=== PATIENT | male | born 1965 | race African-American/Black ===

== ENCOUNTER 2019-05-18 10:26 | Inpatient (IN) | payer OTHER ==
[2019-05-18 13:04] VITALS: BMI 31.5
--- NOTE | 2019-05-18 13:33 | HP ---
CIWA Score Nausea/Vomitin Muscle Tremors: 3 Anxiety: 2 Agitation: 3 Paroxysmal Sweats: No Perspiration Orientation: 0-Oriented Tacttile Disturbances: 0-None Auditory Disturbances: 0-None Visual Disturbances: 0-None Headache: 2-Mild CIWA-Ar Total Score: 13 - Admission Criteria OASAS Guidelines: Admission for Medically Managed Detox: Requires at least one of the followin. CIWA greater than 12 2. Seizures within the past 24 hours 3. Delirium tremens within the past 24 hours 4. Hallucinations within the past 24 hours 5. Acute intervention needed for co occurring medical disorder 6. Acute intervention needed for co occurring psychiatric disorder 7. Severe withdrawal that cannot be handled at a lower level of care (continued vomiting, continued diarrhea, abnormal vital signs) requiring intravenous medication and/or fluids 8. Admission ROS [facility] Chief Complaint: alcohol/cocaine detox Allergies/Adverse Reactions: Allergies Allergy/AdvReac Type Severity Reaction Status Date / Time No Known Allergies Allergy Verified 05/18/19 12:53 History of Present Illness: Patient is a 54 yo M with hx of HTN, DM, bells palsy (1990), presenting for alcohol and cocaine detox. Has been drinking alcohol since he was 41 yo. Last drink this morning. 5th of Vodka. Says he drinks a 1/5th of vodka every day. No hx of seizures. Has history of black outs, last night being the last one. Says he wants to change his life and get cleaned up. Has been doing cocaine since 21 years old via inhalation. Denies IV drug use. Last use this morning. 10grams. Uses 10grams a day. Says he has depression. Denies suicidal ideations right now. But says there are times he wants to jump off the room. Last detox in 2014. Retired social worker school. Smokes 5 cigarettes a day. Exam Limitations: No Limitations - Ebola screening Have you traveled outside of the country in the last 21 days: No (N) Have you had contact with anyone from an Ebola affected area: No Do you have a fever: No - Review of Systems Constitutional: Loss of Appetite, Unintentional Wgt. Loss Respiratory: denies: Shortness of Breath Cardiac: denies: Chest Pain, Palpitations Patient History - Patient Medical History Hx Anemia: No Hx Asthma: No Hx Chronic Obstructive Pulmonary Disease (COPD): No Hx Cardiac Disorders: No Hx Hypertension: Yes (Pt is on meds.) Hx Hypercholesterolemia: No Hx Pacemaker: No HX Cerebrovascular Accident: No Hx Seizures: No Hx Dementia: No Hx Diabetes: Yes (Type II) Hx Gastrointestinal Disorders: No Hx Liver Disease: No Hx Genitourinary Disorders: No Hx Sexually Transmitted Disorders: No Hx Renal Disease (ESRD): No Hx Thyroid Disease: No Hx Human Immunodeficiency Virus (HIV): No (NEGATIVE HX) Hx Hepatitis C: No Hx Depression: Yes Hx Suicide Attempt: No Hx Bipolar Disorder: No Hx Schizophrenia: No - Patient Surgical History Past Surgical History: No - PPD History Date: 11/14/14 - Smoking Cessation Smoking history: Current every day smoker Have you smoked in the past 12 months: Yes Aproximately how many cigarettes per day: 4 Cigars Per Day: 2 Hx Chewing Tobacco Use: No Initiated information on smoking cessation: Yes 'Breaking Loose' booklet given: 05/18/19 - Substances abused Alcohol Substance route: Oral Frequency: Daily Amount used: 5th vodka Age of first use: 19 Date of last use: 05/18/19 Cocaine Substance route: Inhalation Frequency: Daily Amount used: 10 bags Age of first use: 21 Date of last use: 05/18/19 Family Disease History - Family Disease History Family Disease History: Diabetes: Mother, Other: Brother (alcohol) Admission Physical Exam BHS - Vital Signs Vital Signs: Vital Signs - 24 hr 05/18/19 05/18/19 12:55 13:21 Temperature 98.2 F 98.2 F Pulse Rate 90 90 Respiratory 20 20 Rate Blood Pressure 159/88 159/88 - Physical General Appearance: Yes: No Apparent Distress Respiratory: Yes: No Respiratory Distress, No Accessory Muscle Use Cardiology: Yes: Regular Rhythm, Regular Rate Extremities: No: Swelling Neurological: Yes: Facial Droop (R side) - Diagnostic (1) Alcohol dependence Current Visit: No Status: Acute (2) Cocaine dependence Current Visit: No Status: Acute (3) Depression Current Visit: No Status: Chronic (4) Obesity Current Visit: No Status: Chronic (5) Type II diabetes mellitus uncontrolled Current Visit: No Status: Chronic Urine Drug Screen - Test Device Lot number: [id number] Expiration date: 02/05/21 - Control Is test valid?: Yes - Results Drug screen NEGATIVE: No Urine drug screen results: MARVIN-Cocaine Inpatient Rehab Admission - Rehab Decision to Admit Inpatient rehab admission?: No
[2019-05-18] MEDS ORDERED: MENTHOL/PHENOL 1 EACH UD MM PRN (14:05)
[2019-05-18] MEDS ORDERED: METHOCARBAMOL 500 MG TABLET PO PRN (14:05)
[2019-05-18] MEDS ORDERED: BISMUTH SUBSALICYLATE 262 MG/15 ML BTL PO PRN (14:05)
[2019-05-18] MEDS ORDERED: MAGNESIUM HYDROX 2400MG/30ML ORAL SUSPENSION 30 ML CUP PO PRN (14:05)
[2019-05-18] MEDS ORDERED: MAG HYDROX/AL HYDROX/SIMETH 30 ML UNIT-DOSE CUP PO PRN (14:05)
[2019-05-18] MEDS ORDERED: ACETAMINOPHEN 325 MG TABLET (FP) PO PRN ×2 (14:05)
[2019-05-18] MEDS ORDERED: chlordiazePOXIDE HCL 25 MG CAPSULE PO PRN (14:05)
[2019-05-18] MEDS ORDERED: MAGNESIUM CITRATE 300 ML BOTTLE PO PRN (14:05)
[2019-05-18] MEDS ORDERED: IBUPROFEN 400 MG TABLET (FP) PO PRN (14:05)
[2019-05-18] MEDS ORDERED: hydrOXYzine PAMOATE 25 MG CAPSULE (FP) PO PRN (14:05)
--- NOTE | 2019-05-18 14:23 | PN ---
Teaching Attending Note Name of Resident: Breezy Eduardo ATTENDING PHYSICIAN STATEMENT I saw and evaluated the patient. I reviewed the resident's note and discussed the case with the resident. I agree with the resident's findings and plan as documented. SUBJECTIVE: this 54 years old male with alcohol and cocaine dependence,history of hypertension,type 2 dm, munoz palsy right,syncope alcohol related,depression,denied seizure, last detox 2014 OBJECTIVE: Vital Signs Temperature 98.2 F 05/18/19 13:21 Pulse Rate 90 05/18/19 13:21 Respiratory Rate 20 05/18/19 13:21 Blood Pressure 159/88 05/18/19 13:21 O2 Sat by Pulse Oximetry (%) ASSESSMENT AND PLAN: agreed for inpatient detox from alcohol,cocaine,medically inpatient detox, medically managed, librium regimen,diabetic and bp controlled,psychiatric evaluation,possible rehab or outpatient . AA meeting
[2019-05-18] MEDS: NICOTINE 14 MG/24 HOURS TOPICAL PATCH TD SCH (15:43)
[2019-05-18] MEDS: amLODIPine BESYLATE 10 MG TABLET (FP) PO SCH (15:43)
[2019-05-18 16:57] LABS: HEMOGLOBIN 15.1 GM/dL (11.7-16.9); MCH 32.4 pg (25.7-33.7); MCHC 32.9 g/dl (32.0-35.9); MEAN CELL VOLUME 98.6 fl (80-96); MEAN PLT VOLUME 10.2 fl (7.5-11.1); PLATELET COUNT 227 K/MM3 (134-434); RBC 4.66 M/mm3 (4.00-5.60); RDW 14.3 % (11.9-15.9); WHITE BLOOD COUNT 8.6 K/mm3 (4.0-10.0)
[2019-05-18 17:06] LABS: ALBUMIN 3.7 g/dl (3.4-5.0); BILIRUBIN,TOTAL 0.6 mg/dL (0.2-1); BLOOD UREA NITROGEN 21.1 mg/dL (7-18); CALCIUM 9.2 mg/dL (8.5-10.1); CREATININE 1.3 mg/dL (0.55-1.3); POTASSIUM 4.6 mmol/L (3.5-5.1); TOT PROT 7.2 g/dl (6.4-8.2)
[2019-05-18] MEDS: metFORMIN HCL 500 MG TABLET (FP) PO SCH (17:53)
[2019-05-18] MEDS: INSULIN SLIDING SCALE (NOVOLOG) 1 VIAL SQ SCH ×2 (17:53→22:23)
[2019-05-18] MEDS: chlordiazePOXIDE HCL 25 MG CAPSULE PO SCH ×2 (17:53→22:23)
[2019-05-18] MEDS: THIAMINE HCL 100 MG TABLET (FP) PO SCH (22:23)
[2019-05-19] MEDS: chlordiazePOXIDE HCL 25 MG CAPSULE PO SCH ×4 (05:44→22:23)
[2019-05-19] MEDS: metFORMIN HCL 500 MG TABLET (FP) PO SCH ×2 (06:55→16:54)
[2019-05-19] MEDS ORDERED: INSULIN SLIDING SCALE (NOVOLOG) 1 VIAL SQ ONE ×2 (06:57→07:50)
[2019-05-19] MEDS: INSULIN SLIDING SCALE (NOVOLOG) 1 VIAL SQ SCH ×4 (06:57→21:36)
[2019-05-19] MEDS: PRENATAL VITAMINS W/ FOLIC ACID TABLET (FP) PO SCH (10:17)
[2019-05-19] MEDS: amLODIPine BESYLATE 10 MG TABLET (FP) PO SCH (10:17)
[2019-05-19] MEDS: NICOTINE 14 MG/24 HOURS TOPICAL PATCH TD SCH (10:18)
--- NOTE | 2019-05-19 11:30 | PN ---
[facility] CIWA - CIWA Score Nausea/Vomitin-Mild Nausea/No Vomiting Muscle Tremors: 2 Anxiety: 3 Agitation: 3 Paroxysmal Sweats: No Perspiration Orientation: 0-Oriented Tacttile Disturbances: 1-Very Mild Itch/Numbness Auditory Disturbances: 0-None Visual Disturbances: 0-None Headache: 1-Very Mild CIWA-Ar Total Score: 11 S Progress Note (SOAP) Subjective: alert,irritable,anxious,interrupted sleep,tremor Objective: 05/19/19 11:27 Vital Signs Temperature 96.6 F L 05/19/19 09:34 Pulse Rate 94 H 05/19/19 09:34 Respiratory Rate 18 05/19/19 09:34 Blood Pressure 138/95 05/19/19 09:34 O2 Sat by Pulse Oximetry (%) Laboratory Last Values WBC 8.6 K/mm3 (4.0-10.0) 05/18/19 14:30 RBC 4.66 M/mm3 (4.00-5.60) 05/18/19 14:30 Hgb 15.1 GM/dL (11.7-16.9) 05/18/19 14:30 Hct 46.0 % (35.4-49) 05/18/19 14:30 MCV 98.6 fl (80-96) H 05/18/19 14:30 MCH 32.4 pg (25.7-33.7) 05/18/19 14:30 MCHC 32.9 g/dl (32.0-35.9) 05/18/19 14:30 RDW 14.3 % (11.9-15.9) 05/18/19 14:30 Plt Count 227 K/MM3 (134-434) 05/18/19 14:30 MPV 10.2 fl (7.5-11.1) 05/18/19 14:30 Sodium 137 mmol/L (136-145) 05/18/19 14:30 Potassium 4.6 mmol/L (3.5-5.1) 05/18/19 14:30 Chloride 101 mmol/L (98-107) 05/18/19 14:30 Carbon Dioxide 27 mmol/L (21-32) 05/18/19 14:30 Anion Gap 9 MMOL/L (8-16) 05/18/19 14:30 BUN 21.1 mg/dL (7-18) H 05/18/19 14:30 Creatinine 1.3 mg/dL (0.55-1.3) 05/18/19 14:30 Est GFR (CKD-EPI)AfAm 72.20 05/18/19 14:30 Est GFR (CKD-EPI)NonAf 62.29 05/18/19 14:30 POC Glucometer 264 UNITS (80-120) 05/19/19 05:44 Random Glucose 336 mg/dL (74-106) H 05/18/19 14:30 Calcium 9.2 mg/dL (8.5-10.1) 05/18/19 14:30 Total Bilirubin 0.6 mg/dL (0.2-1) 05/18/19 14:30 AST 62 U/L (15-37) H 05/18/19 14:30 ALT 43 U/L (13-61) 05/18/19 14:30 Alkaline Phosphatase 74 U/L (45-117) 05/18/19 14:30 Total Protein 7.2 g/dl (6.4-8.2) 05/18/19 14:30 Albumin 3.7 g/dl (3.4-5.0) 05/18/19 14:30 RPR Titer Nonreactive (NONREACTIVE) 05/18/19 14:30 Assessment: 05/19/19 11:28 withdrawal symptom Plan: continue detox librium regimen,bgm monitoring wit insulin coverage sliding scale
--- NOTE | 2019-05-19 13:07 | CONSULT ---
[facility] Psychiatric Consult - Data Date of interview: 05/19/19 Admission source: [facility] Identifying data: Readmission to [facility] for this 54 y/o AA male self- referred for detoxification (alcohol, cocaine). Examined at [address] [place] [address]. 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 Substance Abuse History: Confirmed by patient in this interview. Details in current [facility] report as follows : Smoking history: Current every day smoker. Have you smoked in the past 12 months: Yes. Aproximately how many cigarettes per day: 4. Cigars Per Day: 2. Hx Chewing Tobacco Use: No. Initiated information on smoking cessation: Yes. 'Breaking Loose' booklet given: . - Substances abused. Alcohol. Substance route: Oral. Frequency: Daily. Amount used: 5th vodka. Age of first use: 19. Date of last use: . Cocaine. Substance route: Inhalation. Frequency: Daily. Amount used: 10 bags. Age of first use: 21. Date of last use: 05/18/19 Medical History: Remarkable for hypertension, obesity and diabetes mellitus. Psychiatric History: Patient denies history of psychiatric hospitalizations, OPD care or suicide attempts. Mr Baugh reports that he has experienced suicidal thoughts in the past and " felt like hearing voices " during times of ETOH + crack/cocaine intoxication. Patient denies history of suicide attempts. Physical/Sexual Abuse/Trauma History: Patient denies history of abuse. Additional Comment: Urine drug screen results: MARVIN-Cocaine. Noted. Mental Status Exam - Mental Status Exam Alert and Oriented to: Time, Place, Person Cognitive Function: Good Patient Appearance: Unkempt (obese), Disheveled Mood: Withdrawn, Hopeful Affect: Appropriate, Normal Range Patient Behavior: Fatigued, Cooperative Speech Pattern: Clear, Appropriate Voice Loudness: Normal Thought Process: Goal Oriented Thought Disorder: Not Present Hallucinations: Denies Suicidal Ideation: Denies Homicidal Ideation: Denies Insight/Judgement: Poor Sleep: Fair Appetite: Good Muscle strength/Tone: Normal Gait/Station: Normal Psychiatric Findings - Problem List ([place] 1, 2,3) (1) Alcohol dependence Current Visit: Yes Status: Chronic (2) Cocaine dependence Current Visit: Yes Status: Chronic (3) Nicotine dependence Current Visit: Yes Status: Chronic (4) Substance induced mood disorder Current Visit: Yes Status: Chronic (5) Insomnia Current Visit: Yes Status: Chronic - Initial Treatment Plan Initial Treatment Plan: Psychoeducation. Sleep hygiene. Support. Detoxification. AA meetings. Relapse prevention (MAT) discussed with the patient. Observation.
[2019-05-19] MEDS: THIAMINE HCL 100 MG TABLET (FP) PO SCH (21:36)
[2019-05-20] MEDS: chlordiazePOXIDE HCL 25 MG CAPSULE PO SCH ×4 (06:07→22:11)
[2019-05-20] MEDS: metFORMIN HCL 500 MG TABLET (FP) PO SCH ×2 (06:07→17:17)
[2019-05-20] MEDS: INSULIN SLIDING SCALE (NOVOLOG) 1 VIAL SQ SCH ×4 (08:07→22:11)
[2019-05-20] MEDS: amLODIPine BESYLATE 10 MG TABLET (FP) PO SCH (10:46)
[2019-05-20] MEDS: PRENATAL VITAMINS W/ FOLIC ACID TABLET (FP) PO SCH (10:46)
[2019-05-20] MEDS: NICOTINE 14 MG/24 HOURS TOPICAL PATCH TD SCH (10:46)
--- NOTE | 2019-05-20 11:33 | EKG ---
Test Reason : Blood Pressure : / mmHG Vent. Rate : 086 BPM Atrial Rate : 086 BPM P-R Int : 160 ms QRS Dur : 106 ms QT Int : 380 ms P-R-T Axes : 064 -69 095 degrees QTc Int : 454 ms SINUS RHYTHM WITH OCCASIONAL PREMATURE VENTRICULAR COMPLEXES POSSIBLE LEFT ATRIAL ENLARGEMENT LEFT ANTERIOR FASCICULAR BLOCK POSSIBLE ANTERIOR INFARCT , AGE UNDETERMINED ABNORMAL ECG NO PREVIOUS ECGS AVAILABLE Confirmed by ERICA GHOTRA, CATHY ([id number]) on 05/20/2019 11:33:05 AM Referred By: Confirmed By:CATHY MALDONADO MD
--- NOTE | 2019-05-20 15:40 | PN ---
S CIWA - CIWA Score Nausea/Vomitin-No Nausea/No Vomiting Muscle Tremors: 2 Anxiety: 2 Agitation: 2 Paroxysmal Sweats: No Perspiration Orientation: 0-Oriented Tacttile Disturbances: 0-None Auditory Disturbances: 0-None Visual Disturbances: 0-None Headache: 0-None Present CIWA-Ar Total Score: 6 BHS Progress Note (SOAP) Subjective: doing well with librium detox regimen less tremor mild anxiety Objective: 05/20/19 16:12 alcohol withdrawal sx Laboratory Last Values WBC 8.6 K/mm3 (4.0-10.0) 05/18/19 14:30 RBC 4.66 M/mm3 (4.00-5.60) 05/18/19 14:30 Hgb 15.1 GM/dL (11.7-16.9) 05/18/19 14:30 Hct 46.0 % (35.4-49) 05/18/19 14:30 MCV 98.6 fl (80-96) H 05/18/19 14:30 MCH 32.4 pg (25.7-33.7) 05/18/19 14:30 MCHC 32.9 g/dl (32.0-35.9) 05/18/19 14:30 RDW 14.3 % (11.9-15.9) 05/18/19 14:30 Plt Count 227 K/MM3 (134-434) 05/18/19 14:30 MPV 10.2 fl (7.5-11.1) 05/18/19 14:30 Sodium 137 mmol/L (136-145) 05/18/19 14:30 Potassium 4.6 mmol/L (3.5-5.1) 05/18/19 14:30 Chloride 101 mmol/L (98-107) 05/18/19 14:30 Carbon Dioxide 27 mmol/L (21-32) 05/18/19 14:30 Anion Gap 9 MMOL/L (8-16) 05/18/19 14:30 BUN 21.1 mg/dL (7-18) H 05/18/19 14:30 Creatinine 1.3 mg/dL (0.55-1.3) 05/18/19 14:30 Est GFR (CKD-EPI)AfAm 72.20 05/18/19 14:30 Est GFR (CKD-EPI)NonAf 62.29 05/18/19 14:30 POC Glucometer 269 UNITS (80-120) 05/20/19 10:50 Random Glucose 336 mg/dL (74-106) H 05/18/19 14:30 Calcium 9.2 mg/dL (8.5-10.1) 05/18/19 14:30 Total Bilirubin 0.6 mg/dL (0.2-1) 05/18/19 14:30 AST 62 U/L (15-37) H 05/18/19 14:30 ALT 43 U/L (13-61) 05/18/19 14:30 Alkaline Phosphatase 74 U/L (45-117) 05/18/19 14:30 Total Protein 7.2 g/dl (6.4-8.2) 05/18/19 14:30 Albumin 3.7 g/dl (3.4-5.0) 05/18/19 14:30 RPR Titer Nonreactive (NONREACTIVE) 05/18/19 14:30 lab noted Vital Signs Temperature 97.6 F 05/20/19 13:39 Pulse Rate 102 H 05/20/19 13:39 Respiratory Rate 20 05/20/19 13:39 Blood Pressure 124/70 05/20/19 13:39 O2 Sat by Pulse Oximetry (%) Assessment: 05/20/19 15:40 alcohol withdrawal sx Plan: continue ativan detox regimen
[2019-05-20] MEDS: THIAMINE HCL 100 MG TABLET (FP) PO SCH (22:11)
[2019-05-21] MEDS ORDERED: chlordiazePOXIDE HCL 10 MG CAPSULE PO PRN
[2019-05-21] MEDS: chlordiazePOXIDE HCL 10 MG CAPSULE PO SCH ×4 (05:40→22:12)
[2019-05-21] MEDS: metFORMIN HCL 500 MG TABLET (FP) PO SCH ×2 (07:04→16:58)
[2019-05-21] MEDS: INSULIN SLIDING SCALE (NOVOLOG) 1 VIAL SQ SCH ×4 (07:13→21:56)
[2019-05-21] MEDS: NICOTINE 14 MG/24 HOURS TOPICAL PATCH TD SCH (11:21)
[2019-05-21] MEDS: PRENATAL VITAMINS W/ FOLIC ACID TABLET (FP) PO SCH (11:21)
[2019-05-21] MEDS: amLODIPine BESYLATE 10 MG TABLET (FP) PO SCH (11:21)
--- NOTE | 2019-05-21 13:15 | PN ---
S CIWA - CIWA Score Nausea/Vomitin-Mild Nausea/No Vomiting Muscle Tremors: 2 Anxiety: 2 Agitation: 2 Paroxysmal Sweats: No Perspiration Orientation: 0-Oriented Tacttile Disturbances: 0-None Auditory Disturbances: 0-None Visual Disturbances: 0-None Headache: 1-Very Mild CIWA-Ar Total Score: 8 BHS Progress Note (SOAP) Subjective: alert,irritable,anxious,interrupted sleep,pain in the body Objective: 05/21/19 13:13 Vital Signs Temperature 96.8 F L 05/21/19 09:19 Pulse Rate 50 L 05/21/19 09:19 Respiratory Rate 18 05/21/19 09:19 Blood Pressure 146/94 05/21/19 09:19 O2 Sat by Pulse Oximetry (%) 05/21/19 13:14 bgm 246 Assessment: 05/21/19 13:13 withdrawal symptom Plan: continue detox librium regimen,bgm monitoring
[2019-05-21] MEDS: THIAMINE HCL 100 MG TABLET (FP) PO SCH (21:53)
[2019-05-21] MEDS: MELATONIN 5 MG TABLETS PO PRN (21:53)
[2019-05-22] MEDS: metFORMIN HCL 500 MG TABLET (FP) PO SCH ×2 (06:00→17:13)
[2019-05-22] MEDS: chlordiazePOXIDE HCL 10 MG CAPSULE PO SCH ×2 (06:00→17:13)
[2019-05-22] MEDS ORDERED: INSULIN SLIDING SCALE (NOVOLOG) 1 VIAL SQ ONE (07:53)
[2019-05-22] MEDS: INSULIN SLIDING SCALE (NOVOLOG) 1 VIAL SQ SCH ×4 (07:54→22:17)
[2019-05-22] MEDS: amLODIPine BESYLATE 10 MG TABLET (FP) PO SCH (10:59)
[2019-05-22] MEDS: NICOTINE 14 MG/24 HOURS TOPICAL PATCH TD SCH (10:59)
[2019-05-22] MEDS: PRENATAL VITAMINS W/ FOLIC ACID TABLET (FP) PO SCH (10:59)
--- NOTE | 2019-05-22 14:50 | PN ---
S CIWA - CIWA Score Nausea/Vomitin-No Nausea/No Vomiting Muscle Tremors: None Anxiety: 0-No Anxiety, at Ease Agitation: 0-Normal Activity Paroxysmal Sweats: No Perspiration Orientation: 0-Oriented Tacttile Disturbances: 0-None Auditory Disturbances: 0-None Visual Disturbances: 0-None Headache: 0-None Present CIWA-Ar Total Score: 0 BHS Progress Note (SOAP) Subjective: Patient denies current Withdrawal / Detox symptoms and reports that he feels well overall at this time. Objective: PATIENT A & O X 3. IN NO ACUTE DISTRESS. 05/22/19 14:47 Vital Signs Temperature 97.6 F 05/22/19 13:12 Pulse Rate 47 L 05/22/19 14:23 Respiratory Rate 18 05/22/19 13:12 Blood Pressure 151/96 05/22/19 14:23 O2 Sat by Pulse Oximetry (%) Laboratory Tests 05/18/19 05/18/19 05/18/19 14:30 14:30 14:30 WBC 8.6 RBC 4.66 Hgb 15.1 Hct 46.0 MCV 98.6 H MCH 32.4 MCHC 32.9 RDW 14.3 Plt Count 227 MPV 10.2 Sodium 137 Potassium 4.6 Chloride 101 Carbon Dioxide 27 Anion Gap 9 BUN 21.1 H Creatinine 1.3 Est GFR (CKD-EPI)AfAm 72.20 Est GFR (CKD-EPI)NonAf 62.29 POC Glucometer Random Glucose 336 H Calcium 9.2 Total Bilirubin 0.6 AST 62 H ALT 43 Alkaline Phosphatase 74 Total Protein 7.2 Albumin 3.7 RPR Titer Nonreactive 05/18/19 05/18/19 05/18/19 14:42 16:45 21:45 WBC RBC Hgb Hct MCV MCH MCHC RDW Plt Count MPV Sodium Potassium Chloride Carbon Dioxide Anion Gap BUN Creatinine Est GFR (CKD-EPI)AfAm Est GFR (CKD-EPI)NonAf POC Glucometer [phone] Random Glucose Calcium Total Bilirubin AST ALT Alkaline Phosphatase Total Protein Albumin RPR Titer 05/19/19 05/19/19 05/19/19 05:44 11:54 16:25 WBC RBC Hgb Hct MCV MCH MCHC RDW Plt Count MPV Sodium Potassium Chloride Carbon Dioxide Anion Gap BUN Creatinine Est GFR (CKD-EPI)AfAm Est GFR (CKD-EPI)NonAf POC Glucometer [phone] Random Glucose Calcium Total Bilirubin AST ALT Alkaline Phosphatase Total Protein Albumin RPR Titer 05/19/19 05/20/19 05/20/19 21:24 06:05 10:50 WBC RBC Hgb Hct MCV MCH MCHC RDW Plt Count MPV Sodium Potassium Chloride Carbon Dioxide Anion Gap BUN Creatinine Est GFR (CKD-EPI)AfAm Est GFR (CKD-EPI)NonAf POC Glucometer [phone] Random Glucose Calcium Total Bilirubin AST ALT Alkaline Phosphatase Total Protein Albumin RPR Titer 05/20/19 05/20/19 05/21/19 16:26 21:09 05:37 WBC RBC Hgb Hct MCV MCH MCHC RDW Plt Count MPV Sodium Potassium Chloride Carbon Dioxide Anion Gap BUN Creatinine Est GFR (CKD-EPI)AfAm Est GFR (CKD-EPI)NonAf POC Glucometer [phone] Random Glucose Calcium Total Bilirubin AST ALT Alkaline Phosphatase Total Protein Albumin RPR Titer 05/21/19 05/21/19 05/21/19 12:06 16:28 20:49 WBC RBC Hgb Hct MCV MCH MCHC RDW Plt Count MPV Sodium Potassium Chloride Carbon Dioxide Anion Gap BUN Creatinine Est GFR (CKD-EPI)AfAm Est GFR (CKD-EPI)NonAf POC Glucometer [phone] Random Glucose Calcium Total Bilirubin AST ALT Alkaline Phosphatase Total Protein Albumin RPR Titer 05/22/19 05/22/19 05:59 11:04 WBC RBC Hgb Hct MCV MCH MCHC RDW Plt Count MPV Sodium Potassium Chloride Carbon Dioxide Anion Gap BUN Creatinine Est GFR (CKD-EPI)AfAm Est GFR (CKD-EPI)NonAf POC Glucometer [phone] Random Glucose Calcium Total Bilirubin AST ALT Alkaline Phosphatase Total Protein Albumin RPR Titer LABS NOTED. PATIENT HAS HAD ELEVATED AST LEVELS ON PREVIOUS ADMISSIONS. 05/22/19 14:47 Assessment: 05/22/19 14:48 WITHDRAWAL SYMPTOMS. HYPERTENSION. ELEVATED AST LEVEL. Plan: CONTINUE DETOX. LISINOPRIL, 10 MG PO DAILY ORDERED FOR ELEVATED BP DESPITE PREVIOUS TREATMENT. [facility] FOR LISINOPRIL, 40 MG PO DAILY ON OUTPATIENT BASIS. WILL START AT 10 MG PO DAILY AND SUBSEQUENTLY TITRATE ACCORDINGLY.
[2019-05-22] MEDS ORDERED: LISINOPRIL 10 MG TABLET (FP) PO ONE (15:05)
[2019-05-22] MEDS: MELATONIN 5 MG TABLETS PO PRN (22:17)
[2019-05-22] MEDS: THIAMINE HCL 100 MG TABLET (FP) PO SCH (22:17)
[2019-05-23] MEDS ORDERED: chlordiazePOXIDE HCL 10 MG CAPSULE PO ONE (05:00)
[2019-05-23] MEDS: metFORMIN HCL 500 MG TABLET (FP) PO SCH (08:14)
[2019-05-23] MEDS: INSULIN SLIDING SCALE (NOVOLOG) 1 VIAL SQ SCH ×2 (08:14→11:48)
[2019-05-23] MEDS ORDERED: LISINOPRIL 10 MG TABLET (FP) PO SCH (10:00)
[2019-05-23] MEDS: PRENATAL VITAMINS W/ FOLIC ACID TABLET (FP) PO SCH (10:08)
[2019-05-23] MEDS: amLODIPine BESYLATE 10 MG TABLET (FP) PO SCH (10:08)
[2019-05-23] MEDS ORDERED: VITAMINS A AND D TOPICAL OINTMENT 60 GM TUBE TP ONE (10:12)
[2019-05-23] MEDS: NICOTINE 14 MG/24 HOURS TOPICAL PATCH TD SCH (11:03)
--- NOTE | 2019-05-23 13:26 | DS ---
[facility] Detox Discharge Summary Admission Date: 05/18/19 Discharge Date: 05/23/19 - History Present History: Alcohol Dependence, Cocaine Dependence Additional Comments: PATIENT GOING TO [facility] ([facility]) FOR AFTERCARE. PATIENT WAS DISCHARGED FROM DETOX UNIT TO BE TAKEN OVER TO REHAB UNIT IN STABLE MEDICAL CONDITION. Pertinent Past History: Nicotine Dependence, Depression, Insomnia, Type DM, History Of George's Palsy. - Physical Exam Results Vital Signs: Vital Signs Temperature 98.1 F 05/23/19 09:32 Pulse Rate 88 05/23/19 09:32 Respiratory Rate 18 05/23/19 09:32 Blood Pressure 144/97 05/23/19 09:32 O2 Sat by Pulse Oximetry (%) Pertinent Admission Physical Exam Findings: WITHDRAWAL SYMPTOMS. Laboratory Tests 05/18/19 05/18/19 05/18/19 14:30 14:30 14:30 WBC 8.6 RBC 4.66 Hgb 15.1 Hct 46.0 MCV 98.6 H MCH 32.4 MCHC 32.9 RDW 14.3 Plt Count 227 MPV 10.2 Sodium 137 Potassium 4.6 Chloride 101 Carbon Dioxide 27 Anion Gap 9 BUN 21.1 H Creatinine 1.3 Est GFR (CKD-EPI)AfAm 72.20 Est GFR (CKD-EPI)NonAf 62.29 POC Glucometer Random Glucose 336 H Calcium 9.2 Total Bilirubin 0.6 AST 62 H ALT 43 Alkaline Phosphatase 74 Total Protein 7.2 Albumin 3.7 RPR Titer Nonreactive 05/18/19 05/18/19 05/18/19 14:42 16:45 21:45 WBC RBC Hgb Hct MCV MCH MCHC RDW Plt Count MPV Sodium Potassium Chloride Carbon Dioxide Anion Gap BUN Creatinine Est GFR (CKD-EPI)AfAm Est GFR (CKD-EPI)NonAf POC Glucometer [phone] Random Glucose Calcium Total Bilirubin AST ALT Alkaline Phosphatase Total Protein Albumin RPR Titer 05/19/19 05/19/19 05/19/19 05:44 11:54 16:25 WBC RBC Hgb Hct MCV MCH MCHC RDW Plt Count MPV Sodium Potassium Chloride Carbon Dioxide Anion Gap BUN Creatinine Est GFR (CKD-EPI)AfAm Est GFR (CKD-EPI)NonAf POC Glucometer [phone] Random Glucose Calcium Total Bilirubin AST ALT Alkaline Phosphatase Total Protein Albumin RPR Titer 05/19/19 05/20/19 05/20/19 21:24 06:05 10:50 WBC RBC Hgb Hct MCV MCH MCHC RDW Plt Count MPV Sodium Potassium Chloride Carbon Dioxide Anion Gap BUN Creatinine Est GFR (CKD-EPI)AfAm Est GFR (CKD-EPI)NonAf POC Glucometer [phone] Random Glucose Calcium Total Bilirubin AST ALT Alkaline Phosphatase Total Protein Albumin RPR Titer 05/20/19 05/20/19 05/21/19 16:26 21:09 05:37 WBC RBC Hgb Hct MCV MCH MCHC RDW Plt Count MPV Sodium Potassium Chloride Carbon Dioxide Anion Gap BUN Creatinine Est GFR (CKD-EPI)AfAm Est GFR (CKD-EPI)NonAf POC Glucometer [phone] Random Glucose Calcium Total Bilirubin AST ALT Alkaline Phosphatase Total Protein Albumin RPR Titer 05/21/19 05/21/19 05/21/19 12:06 16:28 20:49 WBC RBC Hgb Hct MCV MCH MCHC RDW Plt Count MPV Sodium Potassium Chloride Carbon Dioxide Anion Gap BUN Creatinine Est GFR (CKD-EPI)AfAm Est GFR (CKD-EPI)NonAf POC Glucometer [phone] Random Glucose Calcium Total Bilirubin AST ALT Alkaline Phosphatase Total Protein Albumin RPR Titer 05/22/19 05/22/19 05/22/19 05:59 11:04 16:37 WBC RBC Hgb Hct MCV MCH MCHC RDW Plt Count MPV Sodium Potassium Chloride Carbon Dioxide Anion Gap BUN Creatinine Est GFR (CKD-EPI)AfAm Est GFR (CKD-EPI)NonAf POC Glucometer [phone] Random Glucose Calcium Total Bilirubin AST ALT Alkaline Phosphatase Total Protein Albumin RPR Titer 05/22/19 05/23/19 05/23/19 22:01 05:28 11:41 WBC RBC Hgb Hct MCV MCH MCHC RDW Plt Count MPV Sodium Potassium Chloride Carbon Dioxide Anion Gap BUN Creatinine Est GFR (CKD-EPI)AfAm Est GFR (CKD-EPI)NonAf POC Glucometer [phone] Random Glucose Calcium Total Bilirubin AST ALT Alkaline Phosphatase Total Protein Albumin RPR Titer 05/23/19 11:44 WBC RBC Hgb Hct MCV MCH MCHC RDW Plt Count MPV Sodium Potassium Chloride Carbon Dioxide Anion Gap BUN Creatinine Est GFR (CKD-EPI)AfAm Est GFR (CKD-EPI)NonAf POC Glucometer 357 Random Glucose Calcium Total Bilirubin AST ALT Alkaline Phosphatase Total Protein Albumin RPR Titer LABS NOTED. - Treatment Hospital Course: Detox Protocol Followed, Detoxed Safely, Responded well, Discharged Condition Good, Rehab Referral Accepted Patient has Accepted a Rehab Referral to: [facility] ([place], [place]). - Medication Discharge Medications: Ambulatory Orders Amlodipine Besylate [Norvasc -] 10 mg PO DAILY 09/19/13 metFORMIN HCL [Glucophage -] 500 mg PO BID 09/19/13 Lisinopril [Zestril] 40 mg PO DAILY 05/22/19 Nifedipine ER [Procardia XL -] 90 mg PO DAILY 05/22/19 - Diagnosis (1) Elevated aspartate aminotransferase level Current Visit: Yes Status: Acute (2) Hypertension Current Visit: Yes Status: Chronic Qualifiers: Hypertension type: unspecified Qualified Code(s): I10 - Essential (primary ) hypertension (3) Alcohol dependence Current Visit: Yes Status: Acute (4) Cocaine dependence Current Visit: Yes Status: Chronic Qualifiers: Substance use status: in withdrawal Qualified Code(s): F14.23 - Cocaine dependence with withdrawal (5) Insomnia Current Visit: Yes Status: Chronic Qualifiers: Insomnia type: unspecified Qualified Code(s): G47.00 - Insomnia, unspecified (6) Nicotine dependence Current Visit: Yes Status: Chronic Qualifiers: Nicotine product type: cigarettes Substance use status: uncomplicated Qualified Code(s): F17.210 - Nicotine dependence, cigarettes, uncomplicated (7) Substance induced mood disorder Current Visit: Yes Status: Chronic (8) Depression Current Visit: No Status: Chronic Qualifiers: Depression Type: unspecified Qualified Code(s): F32.9 - Major depressive disorder, single episode, unspecified (9) Type II diabetes mellitus uncontrolled Current Visit: Yes Status: Chronic - AMA Did Patient Leave Against Medical Advice: No [facility] CIWA - CIWA Score Nausea/Vomitin-No Nausea/No Vomiting Muscle Tremors: None Anxiety: 0-No Anxiety, at Ease Agitation: 1-Slight > Activity Paroxysmal Sweats: No Perspiration Orientation: 0-Oriented Tacttile Disturbances: 0-None Auditory Disturbances: 0-None Visual Disturbances: 0-None Headache: 0-None Present CIWA-Ar Total Score: 1
[2019-05-23 13:28] VITALS: BP 158/97; PULSE 86; TEMP 98
== END 2019-05-23 17:00 | disposition home or self-care (01) | DRG 897 ==
LOC: YASAS 10:26 → Y3N 15:03
PROVIDERS: ADMIT Surgery; ATTEND Surgery
PROC: HZ2ZZZZ Detoxification Services for Substance Abuse Treatment (ICD-10-PCS; principal; 2019-05-18)
DX: F10.230 Alcohol dependence with withdrawal, uncomplicated (principal); F14.20 Cocaine dependence, uncomplicated; F17.210 Nicotine dependence, cigarettes, uncomplicated; F19.24 Other psychoactive substance dependence with psychoactive substance-induced mood disorder; F32.9 Major depressive disorder, single episode, unspecified; G47.00 Insomnia, unspecified; G51.0 Bell's palsy; I10 Essential (primary) hypertension; E11.65 Type 2 diabetes mellitus with hyperglycemia; Z79.84 Long term (current) use of oral hypoglycemic drugs; R94.5 Abnormal results of liver function studies
CPT/HCPCS: 36415; 71046-TC-FY; 80053; 82962; 85027; 86593; 93005; 93010

== ENCOUNTER 2019-05-23 17:10 | Inpatient (IN) | payer OTHER ==
--- NOTE | 2019-05-23 13:44 | HP ---
[facility] Rehab Assess/Revision - Admission History Admitted to Rehab from: [facility] Date of Admission to Rehab: 05/23/2019. - Vital signs Vital Signs: NOTED; STABLE. - Findings Detox History & Physical reviewed: Yes Concur with findings: Yes Comments/Additional Findings: PATIENT'S MEDICAL / MEDICATION HISTORY REVIEWED PRIOR TO DISCHARGE FROM DETOX UNIT. LISINOPRIL STARTED (AT 10 MG PO DAILY) FOR TREATMENT OF HTN WHILE PATIENT WAS ADMITTED FOR DETOX. DAILY DOSE OF LISINOPRIL TO BE INCREASED TO 20 MG PO DAILY FOR TIME BEIMNG WHILE PATIENT ADMITTED TO REHAB FOR ELEVATED BP READINGS DESPITE PREVIOUS TREATMENT. WILL CONTINUE TO MONITOR MR. LEVY'S BP AND TITRATE ACCORDINGLY, IF NECESSARY. PATIENT WAS DISCHARGED FROM DETOX UNIT TO BE TAKEN OVER TO REHAB UNIT IN STABLE MEDICAL CONDITION. Inpatient Rehab Admission - Rehab Decision to Admit Inpatient rehab admission?: Yes - Initial Determination Are CD services needed?: Yes Free of communicable disease: Yes Not in need of hospitalization: Yes - Rehab Admission Criteria Previous failed treatment: Yes Poor recovery environment: Yes Comorbidities: Yes Lacks judgement: No Patient is meeting Inpatient Rehab admission criteria:: Yes
[~2019-05-23 17:10] MED LIST: ACETAMINOPHEN 325 MG TABLET (FP) PO PRN; LOPERAMIDE HCL 2 MG CAPSULE PO PRN; MAG HYDROX/AL HYDROX/SIMETH 30 ML UNIT-DOSE CUP PO PRN; MAGNESIUM CITRATE 300 ML BOTTLE PO PRN; MAGNESIUM HYDROX 2400MG/30ML ORAL SUSPENSION 30 ML CUP PO PRN; MENTHOL/PHENOL 1 EACH UD MM PRN; P-EPHED 60MG/TRIPROLIDI 2.5MG TABLET PO PRN; guaiFENesin 200 MG/10 ML 10 ML UNIT-DOSE CUPS PO PRN
[2019-05-23] MEDS ORDERED: INSULIN (NOVOLOG) ASPART 100 UNITS/ML 10ML VIAL ONE ×2 (17:26→22:24)
[2019-05-23] MEDS: metFORMIN HCL 500 MG TABLET (FP) PO SCH (17:55)
[2019-05-23] MEDS: INSULIN SLIDING SCALE (NOVOLOG) 1 VIAL SQ SCH ×2 (17:55→22:32)
[2019-05-23] MEDS: CLOTRIMAZOLE 1% CREAM 15 GM TUBE TP SCH (21:42)
[2019-05-23] MEDS: THIAMINE HCL 100 MG TABLET (FP) PO SCH (21:42)
[2019-05-24] MEDS: metFORMIN HCL 500 MG TABLET (FP) PO SCH ×2 (06:46→16:51)
[2019-05-24] MEDS ORDERED: INSULIN (NOVOLOG) ASPART 100 UNITS/ML 10ML VIAL ONE ×2 (06:48→12:08)
[2019-05-24] MEDS: INSULIN SLIDING SCALE (NOVOLOG) 1 VIAL SQ SCH ×4 (06:49→21:29)
[2019-05-24] MEDS: PRENATAL VITAMINS W/ FOLIC ACID TABLET (FP) PO SCH (10:06)
[2019-05-24] MEDS: LISINOPRIL 10 MG TABLET (FP) PO SCH (10:06)
[2019-05-24] MEDS: NICOTINE 14 MG/24 HOURS TOPICAL PATCH TD SCH (10:06)
[2019-05-24] MEDS: amLODIPine BESYLATE 10 MG TABLET (FP) PO SCH (10:06)
[2019-05-24] MEDS: CLOTRIMAZOLE 1% CREAM 15 GM TUBE TP SCH ×2 (12:06→21:30)
[2019-05-24] MEDS: MELATONIN 5 MG TABLETS PO PRN (21:30)
[2019-05-24] MEDS: THIAMINE HCL 100 MG TABLET (FP) PO SCH (21:30)
[2019-05-25] MEDS: metFORMIN HCL 500 MG TABLET (FP) PO SCH ×2 (06:24→16:53)
[2019-05-25] MEDS ORDERED: INSULIN (NOVOLOG) ASPART 100 UNITS/ML 10ML VIAL ONE ×3 (07:38→16:54)
[2019-05-25] MEDS: INSULIN SLIDING SCALE (NOVOLOG) 1 VIAL SQ SCH ×4 (07:41→21:26)
[2019-05-25] MEDS: LISINOPRIL 10 MG TABLET (FP) PO SCH (10:16)
[2019-05-25] MEDS: amLODIPine BESYLATE 10 MG TABLET (FP) PO SCH (10:16)
[2019-05-25] MEDS: NICOTINE 14 MG/24 HOURS TOPICAL PATCH TD SCH (10:16)
[2019-05-25] MEDS: PRENATAL VITAMINS W/ FOLIC ACID TABLET (FP) PO SCH (10:16)
[2019-05-25] MEDS: CLOTRIMAZOLE 1% CREAM 15 GM TUBE TP SCH ×2 (10:16→21:26)
--- NOTE | 2019-05-25 16:22 | PN ---
[facility] Progress Note Note: 54 y/o male referred from [address] [place] [address] to rehab. Hx depression(Not on meds but was seen in detox):No complaints PMHx:DM and HTN- on meds Vital Signs - 24 hr 05/25/19 05/25/19 05/25/19 00:30 03:30 07:05 Temperature 97.6 F Pulse Rate 45 L Respiratory 18 16 18 Rate Blood Pressure 163/83 05/25/19 10:00 Temperature Pulse Rate 84 Respiratory Rate Blood Pressure 128/78 continue rehab.
[2019-05-25] MEDS: MELATONIN 5 MG TABLETS PO PRN (21:26)
[2019-05-25] MEDS: THIAMINE HCL 100 MG TABLET (FP) PO SCH (21:26)
[2019-05-26] MEDS: metFORMIN HCL 500 MG TABLET (FP) PO SCH ×2 (07:11→16:47)
[2019-05-26] MEDS ORDERED: INSULIN (NOVOLOG) ASPART 100 UNITS/ML 10ML VIAL ONE ×3 (07:20→16:48)
[2019-05-26] MEDS: INSULIN SLIDING SCALE (NOVOLOG) 1 VIAL SQ SCH ×4 (07:21→21:49)
[2019-05-26] MEDS: NICOTINE 14 MG/24 HOURS TOPICAL PATCH TD SCH (10:16)
[2019-05-26] MEDS: PRENATAL VITAMINS W/ FOLIC ACID TABLET (FP) PO SCH (10:16)
[2019-05-26] MEDS: amLODIPine BESYLATE 10 MG TABLET (FP) PO SCH (10:16)
[2019-05-26] MEDS: LISINOPRIL 10 MG TABLET (FP) PO SCH (10:16)
[2019-05-26] MEDS: CLOTRIMAZOLE 1% CREAM 15 GM TUBE TP SCH ×2 (10:17→21:40)
[2019-05-26] MEDS: THIAMINE HCL 100 MG TABLET (FP) PO SCH (21:40)
[2019-05-26] MEDS: MELATONIN 5 MG TABLETS PO PRN (21:40)
[2019-05-27] MEDS: metFORMIN HCL 500 MG TABLET (FP) PO SCH ×2 (07:07→16:57)
[2019-05-27] MEDS ORDERED: INSULIN (NOVOLOG) ASPART 100 UNITS/ML 10ML VIAL ONE ×2 (07:10→12:09)
[2019-05-27] MEDS: INSULIN SLIDING SCALE (NOVOLOG) 1 VIAL SQ SCH ×4 (07:16→21:39)
[2019-05-27] MEDS: NICOTINE 14 MG/24 HOURS TOPICAL PATCH TD SCH (10:36)
[2019-05-27] MEDS: CLOTRIMAZOLE 1% CREAM 15 GM TUBE TP SCH ×2 (10:36→21:38)
[2019-05-27] MEDS: LISINOPRIL 10 MG TABLET (FP) PO SCH (10:36)
[2019-05-27] MEDS: amLODIPine BESYLATE 10 MG TABLET (FP) PO SCH (10:36)
[2019-05-27] MEDS: PRENATAL VITAMINS W/ FOLIC ACID TABLET (FP) PO SCH (10:36)
[2019-05-27] MEDS: THIAMINE HCL 100 MG TABLET (FP) PO SCH (21:39)
[2019-05-27] MEDS: MELATONIN 5 MG TABLETS PO PRN (21:40)
[2019-05-28] MEDS: metFORMIN HCL 500 MG TABLET (FP) PO SCH ×2 (06:50→17:02)
[2019-05-28] MEDS ORDERED: INSULIN (NOVOLOG) ASPART 100 UNITS/ML 10ML VIAL ONE ×2 (07:33→22:22)
[2019-05-28] MEDS: INSULIN SLIDING SCALE (NOVOLOG) 1 VIAL SQ SCH ×4 (07:36→21:37)
[2019-05-28] MEDS: PRENATAL VITAMINS W/ FOLIC ACID TABLET (FP) PO SCH (10:47)
[2019-05-28] MEDS: amLODIPine BESYLATE 10 MG TABLET (FP) PO SCH (10:47)
[2019-05-28] MEDS: CLOTRIMAZOLE 1% CREAM 15 GM TUBE TP SCH ×2 (10:47→21:37)
[2019-05-28] MEDS: LISINOPRIL 10 MG TABLET (FP) PO SCH (10:47)
[2019-05-28] MEDS: NICOTINE 14 MG/24 HOURS TOPICAL PATCH TD SCH (10:47)
[2019-05-28] MEDS: THIAMINE HCL 100 MG TABLET (FP) PO SCH (21:36)
[2019-05-28] MEDS: MELATONIN 5 MG TABLETS PO PRN (21:38)
[2019-05-29] MEDS: metFORMIN HCL 500 MG TABLET (FP) PO SCH ×2 (07:22→17:03)
[2019-05-29] MEDS: INSULIN SLIDING SCALE (NOVOLOG) 1 VIAL SQ SCH ×4 (07:22→21:41)
[2019-05-29] MEDS: amLODIPine BESYLATE 10 MG TABLET (FP) PO SCH (10:13)
[2019-05-29] MEDS: PRENATAL VITAMINS W/ FOLIC ACID TABLET (FP) PO SCH (10:13)
[2019-05-29] MEDS: LISINOPRIL 10 MG TABLET (FP) PO SCH (10:13)
[2019-05-29] MEDS: NICOTINE 14 MG/24 HOURS TOPICAL PATCH TD SCH (10:14)
[2019-05-29] MEDS: CLOTRIMAZOLE 1% CREAM 15 GM TUBE TP SCH ×2 (10:15→21:41)
[2019-05-29] MEDS ORDERED: INSULIN (NOVOLOG) ASPART 100 UNITS/ML 10ML VIAL ONE ×2 (12:08→20:42)
[2019-05-29] MEDS: THIAMINE HCL 100 MG TABLET (FP) PO SCH (21:42)
[2019-05-29] MEDS: MELATONIN 5 MG TABLETS PO PRN (21:42)
[2019-05-30] MEDS: metFORMIN HCL 500 MG TABLET (FP) PO SCH ×2 (06:57→16:45)
[2019-05-30] MEDS ORDERED: INSULIN (NOVOLOG) ASPART 100 UNITS/ML 10ML VIAL ONE ×2 (07:41→12:01)
[2019-05-30] MEDS: INSULIN SLIDING SCALE (NOVOLOG) 1 VIAL SQ SCH ×4 (07:51→21:32)
[2019-05-30] MEDS: PRENATAL VITAMINS W/ FOLIC ACID TABLET (FP) PO SCH (09:41)
[2019-05-30] MEDS: LISINOPRIL 10 MG TABLET (FP) PO SCH (09:41)
[2019-05-30] MEDS: NICOTINE 14 MG/24 HOURS TOPICAL PATCH TD SCH (09:41)
[2019-05-30] MEDS: amLODIPine BESYLATE 10 MG TABLET (FP) PO SCH (09:41)
[2019-05-30] MEDS: CLOTRIMAZOLE 1% CREAM 15 GM TUBE TP SCH ×2 (10:55→21:31)
[2019-05-30] MEDS: MELATONIN 5 MG TABLETS PO PRN (21:30)
[2019-05-30] MEDS: THIAMINE HCL 100 MG TABLET (FP) PO SCH (21:30)
[2019-05-31] MEDS: metFORMIN HCL 500 MG TABLET (FP) PO SCH ×2 (06:46→16:41)
[2019-05-31] MEDS ORDERED: INSULIN (NOVOLOG) ASPART 100 UNITS/ML 10ML VIAL ONE ×3 (07:40→22:15)
[2019-05-31] MEDS: INSULIN SLIDING SCALE (NOVOLOG) 1 VIAL SQ SCH ×4 (07:57→21:29)
[2019-05-31] MEDS: PRENATAL VITAMINS W/ FOLIC ACID TABLET (FP) PO SCH (10:08)
[2019-05-31] MEDS: LISINOPRIL 10 MG TABLET (FP) PO SCH (10:08)
[2019-05-31] MEDS: amLODIPine BESYLATE 10 MG TABLET (FP) PO SCH (10:08)
[2019-05-31] MEDS: NICOTINE 14 MG/24 HOURS TOPICAL PATCH TD SCH (10:09)
[2019-05-31] MEDS: CLOTRIMAZOLE 1% CREAM 15 GM TUBE TP SCH ×2 (10:09→21:30)
[2019-05-31] MEDS: MELATONIN 5 MG TABLETS PO PRN (21:29)
[2019-05-31] MEDS: THIAMINE HCL 100 MG TABLET (FP) PO SCH (21:29)
[2019-06-01] MEDS: metFORMIN HCL 500 MG TABLET (FP) PO SCH ×2 (06:03→16:52)
[2019-06-01] MEDS: INSULIN SLIDING SCALE (NOVOLOG) 1 VIAL SQ SCH ×4 (07:53→22:18)
[2019-06-01] MEDS ORDERED: INSULIN (NOVOLOG) ASPART 100 UNITS/ML 10ML VIAL ONE ×2 (07:57→11:50)
[2019-06-01] MEDS: amLODIPine BESYLATE 10 MG TABLET (FP) PO SCH (11:34)
[2019-06-01] MEDS: PRENATAL VITAMINS W/ FOLIC ACID TABLET (FP) PO SCH (11:34)
[2019-06-01] MEDS: LISINOPRIL 10 MG TABLET (FP) PO SCH (11:35)
[2019-06-01] MEDS: NICOTINE 14 MG/24 HOURS TOPICAL PATCH TD SCH (11:35)
[2019-06-01] MEDS: CLOTRIMAZOLE 1% CREAM 15 GM TUBE TP SCH ×2 (11:35→21:25)
[2019-06-01] MEDS: MELATONIN 5 MG TABLETS PO PRN (21:26)
[2019-06-01] MEDS: THIAMINE HCL 100 MG TABLET (FP) PO SCH (21:26)
[2019-06-02] MEDS: metFORMIN HCL 500 MG TABLET (FP) PO SCH ×2 (06:29→16:54)
[2019-06-02] MEDS ORDERED: INSULIN (NOVOLOG) ASPART 100 UNITS/ML 10ML VIAL ONE ×2 (07:20→11:54)
[2019-06-02] MEDS: INSULIN SLIDING SCALE (NOVOLOG) 1 VIAL SQ SCH ×4 (07:22→21:25)
[2019-06-02] MEDS: PRENATAL VITAMINS W/ FOLIC ACID TABLET (FP) PO SCH (10:17)
[2019-06-02] MEDS: amLODIPine BESYLATE 10 MG TABLET (FP) PO SCH (10:17)
[2019-06-02] MEDS: NICOTINE 14 MG/24 HOURS TOPICAL PATCH TD SCH (10:17)
[2019-06-02] MEDS: LISINOPRIL 10 MG TABLET (FP) PO SCH (10:17)
[2019-06-02] MEDS: CLOTRIMAZOLE 1% CREAM 15 GM TUBE TP SCH ×2 (10:18→21:24)
[2019-06-02] MEDS: THIAMINE HCL 100 MG TABLET (FP) PO SCH (21:25)
[2019-06-02] MEDS: MELATONIN 5 MG TABLETS PO PRN (21:25)
[2019-06-03] MEDS: metFORMIN HCL 500 MG TABLET (FP) PO SCH ×2 (06:06→16:57)
[2019-06-03] MEDS ORDERED: INSULIN (NOVOLOG) ASPART 100 UNITS/ML 10ML VIAL ONE ×2 (07:38→13:30)
[2019-06-03] MEDS: INSULIN SLIDING SCALE (NOVOLOG) 1 VIAL SQ SCH ×4 (08:03→21:22)
[2019-06-03] MEDS: amLODIPine BESYLATE 10 MG TABLET (FP) PO SCH (10:09)
[2019-06-03] MEDS: LISINOPRIL 10 MG TABLET (FP) PO SCH (10:10)
[2019-06-03] MEDS: PRENATAL VITAMINS W/ FOLIC ACID TABLET (FP) PO SCH (10:10)
[2019-06-03] MEDS: NICOTINE 14 MG/24 HOURS TOPICAL PATCH TD SCH (10:10)
[2019-06-03] MEDS: CLOTRIMAZOLE 1% CREAM 15 GM TUBE TP SCH ×2 (10:11→21:21)
[2019-06-03] MEDS: MELATONIN 5 MG TABLETS PO PRN (21:22)
[2019-06-03] MEDS: THIAMINE HCL 100 MG TABLET (FP) PO SCH (21:22)
[2019-06-04] MEDS ORDERED: INSULIN (NOVOLOG) ASPART 100 UNITS/ML 10ML VIAL ONE (07:06)
[2019-06-04] MEDS: metFORMIN HCL 500 MG TABLET (FP) PO SCH ×2 (07:07→17:00)
[2019-06-04] MEDS: INSULIN SLIDING SCALE (NOVOLOG) 1 VIAL SQ SCH ×4 (07:08→21:20)
[2019-06-04] MEDS: PRENATAL VITAMINS W/ FOLIC ACID TABLET (FP) PO SCH (10:37)
[2019-06-04] MEDS: LISINOPRIL 10 MG TABLET (FP) PO SCH (10:37)
[2019-06-04] MEDS: amLODIPine BESYLATE 10 MG TABLET (FP) PO SCH (10:37)
[2019-06-04] MEDS: NICOTINE 14 MG/24 HOURS TOPICAL PATCH TD SCH (10:38)
[2019-06-04] MEDS: CLOTRIMAZOLE 1% CREAM 15 GM TUBE TP SCH ×2 (10:39→21:18)
[2019-06-04] MEDS: THIAMINE HCL 100 MG TABLET (FP) PO SCH (21:18)
[2019-06-04] MEDS: MELATONIN 5 MG TABLETS PO PRN (21:18)
[2019-06-05] MEDS: metFORMIN HCL 500 MG TABLET (FP) PO SCH (06:59)
[2019-06-05] MEDS ORDERED: INSULIN (NOVOLOG) ASPART 100 UNITS/ML 10ML VIAL ONE (07:06)
[2019-06-05 07:08] VITALS: BP 139/93; PULSE 83; TEMP 97.8
[2019-06-05] MEDS: INSULIN SLIDING SCALE (NOVOLOG) 1 VIAL SQ SCH (07:12)
--- NOTE | 2019-06-05 09:44 | DS ---
[facility] Rehab Discharge Summary - [facility] Rehab Discharge Summary Admission Date: 05/23/19 Discharge Date: 06/05/19 - History Present History: Alcohol dependence, Cocaine dependence Additional Comments: Pt is a 54 y/o male admitted to rehab for alcohol and cocaine dependence and discharging today after completing rehab treatment. Pt reports he has primary care with [facility]. Pertinent Past History: HTN HLD Tpe 2 DM Obesity - Discharge Physical Exam Vital Signs: Vital Signs Temperature 97.8 F 06/05/19 07:07 Pulse Rate 83 06/05/19 07:07 Respiratory Rate 18 06/05/19 07:07 Blood Pressure 139/93 06/05/19 07:07 O2 Sat by Pulse Oximetry (%) Alert o x 3 nad oob ambulating with steady gait Cardiac:s1 s2,rrr Lungs:cta,jayde. Abdomen:soft,+fatty,nt,Full ROM;skin intact Pertinent Admission Physical Exam Findings: Laboratory Tests 05/23/19 05/24/19 05/24/19 21:39 06:14 11:48 POC Glucometer 192 209 209 05/24/19 05/24/19 05/25/19 16:50 20:32 06:22 POC Glucometer 245 210 198 05/25/19 05/25/19 05/25/19 12:04 16:52 21:25 POC Glucometer 243 281 145 05/26/19 05/26/19 05/26/19 07:16 12:34 16:46 POC Glucometer 217 230 188 05/26/19 05/27/19 05/27/19 21:03 07:04 12:04 POC Glucometer 266 250 198 05/27/19 05/27/19 05/28/19 16:59 20:47 06:48 POC Glucometer 177 155 211 05/28/19 05/28/19 05/28/19 12:12 17:01 21:34 POC Glucometer 221 216 223 05/29/19 05/29/19 05/29/19 05:52 11:55 17:02 POC Glucometer 183 208 225 05/29/19 05/30/19 05/30/19 20:51 06:55 11:56 POC Glucometer 203 221 192 05/30/19 05/30/19 05/31/19 16:43 21:29 06:44 POC Glucometer 205 236 185 05/31/19 05/31/19 05/31/19 12:02 16:41 21:27 POC Glucometer 240 212 204 06/01/19 06/01/19 06/01/19 06:02 11:48 16:54 POC Glucometer 172 206 146 06/01/19 06/02/19 06/02/19 20:39 06:27 11:52 POC Glucometer 187 200 179 06/02/19 06/02/19 06/03/19 16:53 20:42 06:06 POC Glucometer 179 171 183 06/03/19 06/03/19 06/03/19 11:58 16:56 20:40 POC Glucometer 152 177 161 06/04/19 06/04/19 06/04/19 05:59 12:16 16:59 POC Glucometer 225 155 122 06/04/19 06/05/19 20:43 06:48 POC Glucometer 207 215 - Treatment Discharge Condition: Discharge condition good Hospital Course: Rehabilitated safely and Responded well Accepted CD Aftercare Referral - Medication Discharge Medications: Ambulatory Orders Amlodipine Besylate [Norvasc -] 10 mg PO DAILY 09/19/13 metFORMIN HCL [Glucophage -] 500 mg PO BID 09/19/13 Lisinopril [Zestril] 40 mg PO DAILY 05/22/19 Nifedipine ER [Procardia XL -] 90 mg PO DAILY 05/22/19 - Medication-Assisted Treatment (MAT) Medication-Assisted Treatment (MAT): No - Discharge Instructions Diet, activity, other medical instructions: Diet:Regular Activity:oob, ad frankie Other medical instructions:Follow up with primary care provider at [facility] on [facility] [place], [place]. Follow up with CD aftercare with [facility] @ [address] [place], [place]. Pt states he has own meds @ home and refills at his Home [facility] - Diagnosis (1) Alcohol dependence Status: Chronic (2) Cocaine dependence Status: Chronic Qualifiers: Substance use status: uncomplicated Qualified Code(s): F14.20 - Cocaine dependence, uncomplicated (3) Hypertension Status: Chronic Qualifiers: Hypertension type: unspecified Qualified Code(s): I10 - Essential (primary ) hypertension (4) Nicotine dependence Status: Chronic Qualifiers: Nicotine product type: cigarettes Substance use status: uncomplicated Qualified Code(s): F17.210 - Nicotine dependence, cigarettes, uncomplicated (5) Obesity Status: Chronic (6) Type II diabetes mellitus uncontrolled Status: Chronic - Follow-up Referral Minutes to complete discharge: 25 - AMA Did Patient Leave Against Medical Advice: No
[2019-06-05] MEDS: NICOTINE 14 MG/24 HOURS TOPICAL PATCH TD SCH (10:06)
[2019-06-05] MEDS: CLOTRIMAZOLE 1% CREAM 15 GM TUBE TP SCH (10:07)
[2019-06-05] MEDS: LISINOPRIL 10 MG TABLET (FP) PO SCH (10:08)
[2019-06-05] MEDS: PRENATAL VITAMINS W/ FOLIC ACID TABLET (FP) PO SCH (10:09)
[2019-06-05] MEDS: amLODIPine BESYLATE 10 MG TABLET (FP) PO SCH (10:09)
== END 2019-06-05 10:20 | disposition home or self-care (01) | DRG 895 ==
LOC: YASAS 17:10 → Y5N 17:11
PROVIDERS: ADMIT Neuromusculoskeletal Medicine & OMM; ATTEND Neuromusculoskeletal Medicine & OMM
PROC: HZ42ZZZ Group Counseling for Substance Abuse Treatment, Cognitive-Behavioral (ICD-10-PCS; principal; 2019-05-23)
DX: F10.230 Alcohol dependence with withdrawal, uncomplicated (principal); F14.20 Cocaine dependence, uncomplicated; F17.210 Nicotine dependence, cigarettes, uncomplicated; I10 Essential (primary) hypertension; E11.65 Type 2 diabetes mellitus with hyperglycemia; E66.9 Obesity, unspecified; Z68.31 Body mass index [BMI] 31.0-31.9, adult; Z79.84 Long term (current) use of oral hypoglycemic drugs
CPT/HCPCS: 82962